=== PATIENT | male | born 1980 | race Caucasian/White ===

== ENCOUNTER 2017-04-20 13:36 | Emergency (ER) | payer OTHER ==
[~2017-04-20] VITALS: Ht 182.9 cm; Wt 102.0 kg
[~2017-04-20 13:36] MED LIST: IBUP-1451 PO
[2017-04-20 13:41] VITALS: TEMP 36.3; Ht 182.9 cm; Wt 102.0 kg
[2017-04-20] MEDS ORDERED: ACETAMINOPHEN 500 MG TAB PO STA (13:54)
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
[2017-04-20 15:19] VITALS: BP 135/93; PULSE 79; O2SAT 96
== END 2017-04-20 15:24 | disposition home or self-care (01) ==
LOC: C.EDB 13:38 → C.EDD 15:24
DX: S09.90XA Unspecified injury of head, initial encounter (principal); V40.9XXA Unspecified car occupant injured in collision with pedestrian or animal in traffic accident, initial encounter; Y93.89 Activity, other specified; Y99.8 Other external cause status; Y92.411 Interstate highway as the place of occurrence of the external cause